=== PATIENT | female | born 1980 | race Caucasian/White ===

== ENCOUNTER 2017-09-19 05:22 | Emergency (ER) | payer MEDICAID | END 2017-09-19 09:22 | disposition home or self-care (01) | LOC: FTE 05:22 | DX: J04.0 Acute laryngitis (principal); J06.9 Acute upper respiratory infection, unspecified | CPT/HCPCS: 71046; 99283-25 ==

== ENCOUNTER 2017-12-25 09:17 | Emergency (ER) | payer MEDICAID | END 2017-12-25 10:29 | disposition home or self-care (01) | LOC: E/R 10:29 | DX: J02.9 Acute pharyngitis, unspecified (principal) | CPT/HCPCS: 99283; Z7502 ==

== ENCOUNTER 2018-11-25 08:49 | Emergency (ER) | payer MEDICAID | END 2018-11-25 09:42 | disposition home or self-care (01) | LOC: FTE 08:49 | DX: J02.9 Acute pharyngitis, unspecified (principal); F17.210 Nicotine dependence, cigarettes, uncomplicated | CPT/HCPCS: 99283; Z7502 ==